=== PATIENT | male | born 1975 | race Caucasian/White ===

== ENCOUNTER 2017-12-07 14:45 | Emergency (ER) | payer BC, OTHER ==
[~2017-12-07 14:45] MED LIST: Sodium Chloride 0.9% 1,000 ML BAG ONE
[2017-12-07 15:10] LABS: #Basophils 0.1 thou/uL (0.0-0.2); #Eosinphils 0.2 thou/uL (0.0-0.7); #Lymphocytes 2.2 thou/uL (1.20-3.40); #Monocytes 0.6 thou/uL (0.11-0.59); #Neutrophils 4.2 thou/uL (1.40-6.50); %Basophils 1.1 % (0.0-1.0); %Eosinophils 3.4 % (0.0-10.0); %Lymphocytes 30.4 % (21.0-51.0); %Monocytes 7.6 % (0.0-10.0); %Neutrophils 57.5 % (42.0-75.0); Hemoglobin 15.5 g/dL (14.0-18.0); Mean Corpuscular HGB CONC 34.3 g/dL (32.0-36.0); Mean Corpuscular Hemoglobin 28.5 pg (27.0-31.0); Mean Corpuscular Volume 83.1 fL (78.0-98.0); Mean Platelet Volume 7.4 fL (7.4-10.4); Platelet Count 214 thou/uL (130-400); RBC Distribution Width 10.9 % (11.5-14.5); Red Blood Cell (RBC) Count 5.42 mill/uL (4.70-6.10); White Blood Cell (WBC) Count 7.3 thou/uL (4.8-10.8)
--- NOTE | 2017-12-07 15:26 | RAD ---
PORTABLE AP CHEST X-RAY 12/07/17 HISTORY: Chest pain. COMPARISON: None available. FINDINGS: The inferior aspect of each lateral costophrenic angle is excluded from view. The lungs are otherwise clear. The cardiac silhouette and pulmonary vasculature are within normal limits. Osseous structures are intact. IMPRESSION: Exclusion of the inferior aspect of the lateral costophrenic angles, but there is otherwise no acute cardiopulmonary process. POS: [facility]
[2017-12-07 15:27] LABS: Anion Gap 15 mmol/L (10-20); BUN (Urea Nitrogen) 18 mg/dL (8.9-20.6); Calc. Creatinine Clearance 0 mL/min (70-130); Calcium 9.7 mg/dL (7.8-10.44); Carbon Dioxide 25 mmol/L (22-29); Chloride 103 mmol/L (98-107); Estimated GFR-MDRD 73; Glucose 76 mg/dL (70-105); Lipase 63 U/L (8-78); Sodium 139 mmol/L (136-145)
[2017-12-07 15:29] LABS: CKMB 1.1 ng/mL (0-6.6); Troponin I 0.022 ng/mL (< 0.028)
== END 2017-12-07 16:40 | disposition short-term general hospital (02) ==
LOC: MADERS 14:45
DX: R07.9 Chest pain, unspecified (principal); J44.9 Chronic obstructive pulmonary disease, unspecified; Z87.891 Personal history of nicotine dependence
CPT/HCPCS: 71045; 80048; 82150; 82553; 83690; 83880; 84484; 85025; 93005; 94760; 96360; J7050

== ENCOUNTER 2021-09-27 10:11 | Emergency (ER) | payer BC ==
[2021-09-27 11:06] LABS: #Basophils 0.1 thou/uL (0.0-0.2); #Eosinphils 0.5 thou/uL (0.0-0.7); #Lymphocytes 1.8 thou/uL (1.20-3.40); #Monocytes 0.5 thou/uL (0.11-0.59); #Neutrophils 2.2 thou/uL (1.40-6.50); %Basophils 2.2 % (0.0-1.0); %Eosinophils 9.2 % (0.0-10.0); %Lymphocytes 35.2 % (21.0-51.0); %Monocytes 9.5 % (0.0-10.0); %Neutrophils 43.9 % (42.0-75.0); Hemoglobin 13.9 g/dL (14.0-18.0); Mean Corpuscular Hemoglobin 28.3 pg (27.0-31.0); Mean Corpuscular Volume 85.6 fL (78.0-98.0); Mean Platelet Volume 9.2 fL (7.4-10.4); Platelet Count 189 thou/uL (130-400); RBC Distribution Width 11.8 % (11.5-14.5); Red Blood Cell (RBC) Count 4.93 mill/uL (4.70-6.10)
[2021-09-27 11:20] LABS: ALT (SGPT) 15 U/L (8-55); AST (SGOT) 17 U/L (5-34); Albumin 4.1 g/dL (3.5-5.0); Alkaline Phosphatase 29 U/L (40-110); Anion Gap 13 mmol/L (10-20); BUN (Urea Nitrogen) 16 mg/dL (8.9-20.6); Bilirubin, Total 0.5 mg/dL (0.2-1.2); Calc. Creatinine Clearance 0 mL/min (70-130); Calcium 9.2 mg/dL (7.8-10.44); Carbon Dioxide 25 mmol/L (22-29); Chloride 106 mmol/L (98-107); Globulin 2.4 g/dL (2.4-3.5); Glucose 95 mg/dL (70-105); Lipase 48 U/L (8-78); Protein, Total 6.5 g/dL (6.0-8.3); Sodium 140 mmol/L (136-145)
== END 2021-09-27 12:09 | disposition left against medical advice (07) ==
LOC: MADERS 10:11
DX: R07.9 Chest pain, unspecified (principal); Z87.891 Personal history of nicotine dependence; J44.9 Chronic obstructive pulmonary disease, unspecified
CPT/HCPCS: 71045; 80053; 83690; 84484; 85025; 93005

== ENCOUNTER 2024-06-02 19:45 | Emergency (ER) | payer BC ==
[2024-06-02] MEDS ORDERED: Morphine 2 MG/ML VIAL ONE (20:51)
[2024-06-02] MEDS ORDERED: Morphine 4 MG/ML VIAL ONE ×2 (20:51→21:55)
[2024-06-02] MEDS ORDERED: Sodium Chloride 0.9% 1,000 ML ONE (20:51)
[2024-06-02] MEDS ORDERED: Lidocaine 4% Cream 5 GM TUBE w/ Tegaderm ONE ×2 (21:56→23:13)
[2024-06-02] MEDS ORDERED: HYDROcodone/Acetaminophen 5/325 mg Tablet ONE (23:26)
== END 2024-06-02 23:37 | disposition home or self-care (01) ==
LOC: MADERS 19:45
DX: T24.201A Burn of second degree of unspecified site of right lower limb, except ankle and foot, initial encounter (principal); J44.9 Chronic obstructive pulmonary disease, unspecified; Z87.891 Personal history of nicotine dependence; T31.0 Burns involving less than 10% of body surface; X58.XXXA Exposure to other specified factors, initial encounter
CPT/HCPCS: 96374; 96376; J2270; J2272; J7030

== ENCOUNTER 2024-08-06 09:42 | Outpatient (CLI) | payer BC | END 2024-08-06 09:43 | disposition home or self-care (01) | LOC: MADRAD 09:42 | PROVIDERS: ATTEND Registered Nurse | DX: R07.9 Chest pain, unspecified (principal); Z98.1 Arthrodesis status | CPT/HCPCS: 71046 ==